=== PATIENT | male | born 2000 | race Caucasian/White ===

== ENCOUNTER 2022-09-08 21:09 | Emergency (ER) | payer SELFPAY ==
--- NOTE | 2022-09-08 21:49 | ED_ITS ---
HPI - Eye Problem General Stated complaint: R eye injury Time Seen by Provider: 09/08/22 21:28 [facility] Social History Social History Smoking status: Never smoker Discharge Plan Discharge Follow-up/Referrals: UNKNOWN,DOCTOR [Primary Care Provider] -
--- NOTE | 2022-09-08 21:49 | ED.EYEPROB ---
HPI - Eye Problem General Stated complaint: R eye injury Time Seen by Provider: 09/08/22 21:28 COUNTS INCLUDE 234 BEDS AT THE [facility] Social History Social History Smoking status: Never smoker Discharge Plan Discharge Follow-up/Referrals: UNKNOWN,DOCTOR [Primary Care Provider] -
== END 2022-09-08 21:30 | disposition left against medical advice (07) ==
LOC: CHSED 09-09 09:37
PROVIDERS: Emergency Provider Internal Medicine Critical Care Medicine
DX: Z53.21 Procedure and treatment not carried out due to patient leaving prior to being seen by health care provider (principal)
CPT/HCPCS: 99199

== ENCOUNTER 2023-03-06 12:12 | Emergency (ER) | payer BC, SELFPAY ==
[2023-03-06 12:12] VITALS: BP 143/85; PULSE 118; RESP 20; TEMP 36.3; O2SAT 100
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
[2023-03-06] MEDS: cefTRIAXone 1 GM VIAL 0.5 GM IM (13:46)
[2023-03-06] MEDS: LIDOCAINE HCL 1% LOCAL INJ 10 ML VIAL INFILTRATE (13:47)
[2023-03-06 14:00] VITALS: BP 124/70; PULSE 79; RESP 14; TEMP 36.8; O2SAT 100
[2023-03-06 14:04] LABS: HIV 1 P24 AG Negative (Negative); HIV 1/2 AB Negative (Negative)
--- NOTE | 2023-03-09 13:18 | PC.NURSE ---
FINAL C TRACHOMATIS RNA RESULTS: DETECTED FINAL N GONORRHOEAE RNA RESULTS: NO DETECTED. NO FURTHER TX NEEDED AT THIS TIME, ATTEMPTED TO CONTACT PT, UNABLE TO LEAVE MESSAGE.
[2023-03-09 14:50] LABS: RPR Screen Non-Reactive (Non-Reactive)
== END 2023-03-06 14:05 | disposition home or self-care (01) ==
PROVIDERS: Emergency Provider Emergency Medicine
DX: Z11.3 Encounter for screening for infections with a predominantly sexual mode of transmission (principal)
CPT/HCPCS: 36415; 86592; 87491; 87591; 87806; 96372; 99283; J0696

== ENCOUNTER 2024-01-19 20:11 | Emergency (ER) | payer BC, SELFPAY ==
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
[2024-01-19 20:15] VITALS: BP 131/95; PULSE 120; RESP 18; TEMP 36.4; O2SAT 100
[2024-01-19] MEDS: KETOROLAC (*BKC) 60 MG/2 ML VIAL IM (20:33)
--- NOTE | 2024-01-19 20:38 | PC.NURSE ---
DR KEATING AT PATIENT BEDSIDE PRESENTING RESULTS OF IMAGING TO PATIENT IN ADDITION TO PLAN OF CARE.
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
== END 2024-01-19 20:51 | disposition home or self-care (01) ==
PROVIDERS: Emergency Provider Emergency Medicine
DX: S40.022A Contusion of left upper arm, initial encounter (principal); W22.8XXA Striking against or struck by other objects, initial encounter
CPT/HCPCS: 73090; 96372; 99283; J1885

== ENCOUNTER 2024-05-04 14:54 | Emergency (ER) | payer BC, SELFPAY ==
[2024-05-04 14:55] VITALS: BP 138/80; PULSE 98; RESP 18; TEMP 36.5; O2SAT 100
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
--- NOTE | 2024-05-04 15:24 | PC.NURSE ---
UPON ERP ASSESSMENT, PT IS REQUESTING STD TESTING. DENIES ANY SX. PT IS REQUESTING HIV TESTING, STATES POSSIBLY EXPOSED TO THE CLAP .
--- NOTE | 2024-05-04 15:34 | PC.NURSE ---
URINE OBTAINED AND SENT TO LAB
[2024-05-04 16:07] LABS: HIV 1 P24 AG Negative (Negative); HIV 1/2 AB Negative (Negative)
[2024-05-04 16:25] VITALS: BP 136/70; PULSE 72; RESP 18; O2SAT 98
[2024-05-07 08:13] LABS: Chlamydia trachomatis NOT DETECTED (NOT DETECTE); Neisseria gonorrhoeae PCR NOT DETECTED (NOT DETECTE)
[2024-05-08 14:04] LABS: RPR Screen NON-REACTIVE (NON-REACTIVE)
== END 2024-05-04 16:25 | disposition home or self-care (01) ==
PROVIDERS: Emergency Provider Emergency Medicine
DX: J06.9 Acute upper respiratory infection, unspecified (principal); Z11.3 Encounter for screening for infections with a predominantly sexual mode of transmission
CPT/HCPCS: 36415; 86592; 87491; 87591; 87806; 99283

== ENCOUNTER 2024-05-27 01:15 | Emergency (ER) | payer BC, SELFPAY ==
[2024-05-27 01:15] VITALS: BP 138/83; PULSE 112; RESP 20; TEMP 36.2; O2SAT 94
--- NOTE | 2024-05-27 01:40 | PC.NURSE ---
dr rios at the bedside
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
[2024-05-27 09:17] LABS: HIV 1 P24 AG Negative (Negative); HIV 1/2 AB Negative (Negative)
[2024-05-30 07:23] LABS: Hepatitis B Surface Antigen NON-REACTIVE (NON-REACTIVE); Hepatitis C Virus Antibody NON-REACTIVE (NON-REACTIVE)
[2024-05-30 07:29] LABS: Hepatitis A Antibody IgM NON-REACTIVE (NON-REACTIVE); Hepatitis B Core Antibody NON-REACTIVE (NON-REACTIVE)
== END 2024-05-27 01:24 | disposition home or self-care (01) ==
LOC: CHSED 01:18
PROVIDERS: Emergency Provider Emergency Medicine
DX: S51.031A Puncture wound without foreign body of right elbow, initial encounter (principal); W46.1XXA Contact with contaminated hypodermic needle, initial encounter
CPT/HCPCS: 36415; 80074; 87806; 99283

== ENCOUNTER 2024-12-15 21:46 | Emergency (ER) | payer BC, SELFPAY ==
[2024-12-15 21:47] VITALS: BP 142/85; PULSE 95; RESP 18; TEMP 36.6; O2SAT 100
--- NOTE | 2024-12-15 22:31 | ED.EAR ---
HPI - Ear Problem General Chief complaint: Ear Stated complaint: pressure in head Time Seen by Provider: 12/15/24 21:48 Source: patient and family Mode of arrival: ambulatory Limitations: no limitations History of Present Illness HPI Narrative: this is a 24-year-old male who presents with some sinus pressure and bilateral ear pressure left greater than right with some nasal congestion with no cough does have a mild sore throat with no shortness of breath no nausea vomiting no fever chills. Complaint: ear pain Location: left ear Duration: constant Severity: moderate Relieving factors: nothing Exacerbating factors: nothing Related Data Home Medications ?Medication ?Instructions ?Recorded ?Confirmed ?Last Taken ?Type No Home Medications 01/19/24 12/15/24 Unknown History Allergies Allergy/AdvReac Type Severity Reaction Status Date / Time No Known Allergies Allergy Verified 12/15/24 22:00 Review of Systems Review of Systems: All systems reviewed & are unremarkable except as noted in HPI and below PMFSH Social History Social History Smoking status: Never smoker Exam Const: General: healthy appearing Nutritional Appearance: well nourished Orientation/consciousness: patient oriented x3 Limitations: no limitations HENMT: Other: frontal maxillary sinus tenderness with palpation with some bilateral nasal turbinates swollen red and erythematous with an erythematous throat. Eyes: Conjunctivae: conjunctivae normal Neck: Neck: normal visual inspection Chest: Chest palpation & inspection: normal inspection of the chest Resp: Effort & Inspection: normal respiratory effort Auscultation: clear to auscultation bilaterally Cardio: Rate: regular rate Rhythm: regular rhythm GI: GI Palp: Yes Soft to palpation Auscultation: normal bowel sounds Skin: General skin exam: normal color Rashes: no rashes Course Course Emergency Course: patient with some sinus pressure and left ear pain with pressure received 60mg IM Toradol COVID RSV influenza and rapid strep performed and reviewed with patient and family. Vital Signs Vital signs: Vital Signs Temperature 36.6 C 12/15/24 21:47 Pulse Rate 95 12/15/24 21:47 Respiratory Rate 18 12/15/24 21:47 Blood Pressure 142/85 H 12/15/24 21:47 Pulse Oximetry 100 12/15/24 21:47 Oxygen Delivery Room Air 12/15/24 21:47 Temperature 36.6 C 12/15/24 21:47 Pulse Rate 95 12/15/24 21:47 Respiratory Rate 18 12/15/24 21:47 Blood Pressure 142/85 H 12/15/24 21:47 Pulse Oximetry 100 12/15/24 21:47 Oxygen Delivery Room Air 12/15/24 21:47 Medical Decision Making Vital Signs Vital Signs: Vital Signs Temperature 36.6 C 12/15/24 21:47 Pulse Rate 95 12/15/24 21:47 Respiratory Rate 18 12/15/24 21:47 Blood Pressure 142/85 H 12/15/24 21:47 Pulse Oximetry 100 12/15/24 21:47 Oxygen Delivery Room Air 12/15/24 21:47 Temperature 36.6 C 12/15/24 21:47 Pulse Rate 95 12/15/24 21:47 Respiratory Rate 18 12/15/24 21:47 Blood Pressure 142/85 H 12/15/24 21:47 Pulse Oximetry 100 12/15/24 21:47 Oxygen Delivery Room Air 12/15/24 21:47 Critical Care Time Critical Care Time Critical Care Time: No Discharge Plan Discharge Clinical Impression: Sinusitis Qualifiers: Sinusitis location: frontal Chronicity: acute Recurrence: recurrent Qualified Code(s): J01.11 - Acute recurrent frontal sinusitis Patient Disposition: Home Condition: Stable Instructions: Antibiotic Form, Sinusitis (ED) Additional Instructions: advised patient to take medication as prescribed and to follow with primary care physician within the next week if symptoms persist or worsen. Patient Language: Slovak Prescriptions: No Action No Home Medications Follow-up/Referrals: Chely,Arina Senior APRN [Primary Care Provider] -
[2024-12-15] MEDS: KETOROLAC (*BKC) 60 MG/2 ML VIAL IM (22:54)
[2024-12-15 23:35] LABS: Strep Group A RT-PCR NOT DETECTED (Negative)
[2024-12-15 23:44] LABS: Influenza A QL RT-PCR Negative (Negative); Influenza B QL RT-PCR Negative (Negative); RSV RNA, RT-PCR Negative (Negative); SARS-CoV-2 RNA PCR Negative (Negative)
[2024-12-16] MEDS: AMOXICILLIN/CLAVULANATE K 875-125 MG TAB 1 TABLET PO (00:25)
[2024-12-16 01:15] VITALS: BP 139/82; PULSE 90; RESP 16; TEMP 36.8; O2SAT 100
== END 2024-12-16 00:55 | disposition home or self-care (01) ==
PROVIDERS: Emergency Provider Emergency Medicine; PCP Nurse Practitioner Family
DX: J01.11 Acute recurrent frontal sinusitis (principal); Z20.822 Contact with and (suspected) exposure to COVID-19
CPT/HCPCS: 87637; 87651; 96372; 99283; A9270; J1885

== ENCOUNTER 2025-05-23 11:31 | Emergency (ER) | payer BC, SELFPAY ==
--- NOTE | ~2025-05-23 | XR_ITS ---
EXAMINATION: XR chest 2V, 05/23/2025 12:00 CDT HISTORY: Chest congestion COMPARISON: No comparisons available. Technique: 2 views obtained. Findings: The lungs are clear, no effusion. No pneumothorax. Heart is normal size. Mediastinal and hilar contours are within normal limits. Bony thorax no acute abnormality. There is metallic radiopaque foreign body overlying the left upper hemithorax. Impression: No acute cardiopulmonary abnormality. Reviewed, dictated and finalized at location P. Impression: No acute cardiopulmonary abnormality.
--- NOTE | ~2025-05-23 | CT_ITS ---
CT ABDOMEN AND PELVIS WITHOUT CONTRAST Clinical History: Flank pain Comparison: None Technique: Unenhanced axial images lung bases to symphysis pubis Coronal, sagittal reformats CT images acquired with automatic exposure control for dose reduction DLP: 255 mGy-cm Findings: Without intravenous contrast, sensitivity for detecting visceral parenchymal abnormalities decreased. Evaluation further degraded by motion and streak artifact. Lung bases: Clear. Visualized heart and pericardium: Unremarkable. Liver: Unremarkable. Gallbladder: Unremarkable. Spleen: Unremarkable. Pancreas: Unremarkable. Adrenal glands: Unremarkable. Kidneys: Right kidney- No hydronephrosis. No renal stones. Left kidney- No hydronephrosis. No renal stones. Distal esophagus/stomach: Unremarkable. Small bowel loops: Normal caliber and wall thickness. Colon: Normal caliber and wall thickness. Appendix not identified. Nodes: No enlarged nodes. Peritoneum: No ascites. No free intraperitoneal air. Urinary bladder: Unremarkable. Prostate: Unremarkable. Bones: No acute bony abnormality. Soft tissues: Unremarkable. Unopacified abdominal aorta: No aneurysmal dilatation. IMPRESSION: 1. No acute abnormality. Reviewed, dictated and finalized at location R. IMPRESSION: 1. No acute abnormality.
--- NOTE | 2025-05-23 11:32 | ECG_ITS ---
Test Date: 2025-05-23 11:41:12 Measurements Intervals [place] Rate: 93 P: 81 MI: 179 QRS: 68 QRSD: 110 T: 55 QT: 353 QTc: 440 Interpretive Statements SINUS RHYTHM INCOMPLETE RIGHT BUNDLE BRANCH BLOCK MINIMAL Q WAVES- DIFFUSE LEADS BORDERLINE ECG No previous ECG available for comparison Electronically Signed On 05-23-2025 11:48:08 CDT by Jorge Mar D.O.
[2025-05-23] MEDS: KETOROLAC 30 MG/ML VIAL (*BKC) IV PUSH (11:41)
[2025-05-23] MEDS: ONDANSETRON INJ 4 MG/2 ML VIAL IV PUSH (11:41)
[2025-05-23] MEDS: SODIUM CHLORIDE 0.9% IV 1,000 ML 999 ML IV CONT (11:42)
[2025-05-23 11:53] VITALS: BP 154/72; PULSE 90; RESP 12; TEMP 37.1; O2SAT 99
[2025-05-23 12:00] LABS: Hematocrit 40.4 % (40.0-54.0); Hemoglobin 13.0 g/dL (14.0-18.0); Immature Granulocyte Percent A 0.1 % (0.0-0.0); Lymphocytes Absolute Auto 2.68 K/mm3 (1.10-4.50); Mean Corpuscular HGB Conc 32.2 g/dL (32-36); Mean Corpuscular Hemoglobin 27.5 pg (27.0-31.0); Mean Corpuscular Volume 85.4 fL (78.0-102.0); Nucleated Red Blood Cells Absolute Auto 0.00 K/mm3 (0.00-0.00); Nucleated Red Blood Cells Perc 0.0 % (0-0.0); Platelet Count Result 389 K/mm3 (150-420); Red Blood Count 4.73 M/mm3 (4.70-6.10); White Blood Count 7.5 K/mm3 (4.8-10.8)
[2025-05-23 12:12] LABS: Alanine Aminotransferase 15 U/L (6-50); Albumin Level 4.2 g/dL (3.5-5.1); Alkaline Phosphatase 79 U/L (38-126); Anion Gap 7 mmol/L (4-12); Aspartate Amino Transferase 21 U/L (17-59); Bilirubin,Total 0.8 mg/dL (0.2-1.3); Blood Urea Nitrogen 12 mg/dL (9-20); Calcium 9.0 mg/dL (8.4-10.2); Carbon Dioxide 27 mmol/L (22-30); Chloride 105 mmol/L (98-107); Estimated CRCL calculation 125 ml/min; Estimated Glomerular Filt Rate > 60; Glucose 110 mg/dL (65-110); Lipase 46 U/L (23-300); Osmolality Calculated 288 mOsm/kg (285-295); Potassium 3.9 mmol/L (3.4-5.0); Sodium 139 mmol/L (137-145); Total Protein 6.9 g/dL (6.3-8.2)
[2025-05-23 12:15] LABS: INR 1.0; Partial Thromboplastin Time 30.9 Sec (23.9-30.70); Prothrombin Time 10.9 Seconds (9.50-12.1)
[2025-05-23 12:23] LABS: Troponin I < 0.012 ng/mL (0.000-0.034)
[2025-05-23 12:36] LABS: Influenza A QL RT-PCR Negative (Negative); Influenza B QL RT-PCR Negative (Negative); RSV RNA, RT-PCR Negative (Negative); SARS-CoV-2 RNA PCR Negative (Negative)
--- NOTE | 2025-05-23 12:46 | ED.ABDPAIN ---
HPI - Abdominal Pain General Chief Complaint: Abdominal Pain Stated Complaint: abd pain Time Seen by Provider: 05/23/25 11:32 Source: patient and police Mode of arrival: ambulatory Limitations: no limitations History of Present Illness HPI narrative: This is a 20-year-old male with no significant past medical history presents with left flank pain radiating to his left groin area with some cough and congestion with some nausea no vomiting no fever chills no chest pain or shortness of breath no audible wheezing. Patient was escorted to the ED police. MD elicited complaint: abdominal pain and flank pain Onset (ago): day(s) Pain Consistency: constant Location: L flank Severity: moderate Pain scale (0-10): 8 Quality: aching Related Data Allergies Allergy/AdvReac Type Severity Reaction Status Date / Time No Known Allergies Allergy Verified 12/15/24 22:00 Review of Systems Review of Systems: All systems reviewed & are unremarkable except as noted in HPI and below PMFSH Social History Social History Smoking status: Never smoker Exam Const: General: healthy appearing and no acute distress Nutritional Appearance: well nourished Orientation/consciousness: patient oriented x3 Limitations: no limitations Chest: Chest palpation & inspection: normal inspection of the chest Resp: Effort & Inspection: normal respiratory effort Auscultation: clear to auscultation bilaterally Cardio: Rate: regular rate Rhythm: regular rhythm GI: GI Palp: Yes Soft to palpation Auscultation: normal bowel sounds : General: Yes bladder normal to palpation and Yes CVA tenderness Skin: General skin exam: normal color Rashes: no rashes Extrem: General: normal to inspection and no clubbing, cyanosis or edema Course Course Emergency Course: Medical decision making narrative: The patient was evaluated by myself in the emergency department. History obtained from the patient who is an independent historian physical exam performed and witnessed by nurse. X-ray of the chest performed reviewed with no acute cardiopulmonary abnormality, blood work obtained which shows no acute abnormalities. The patient received 30mg IV Toradol and Zofran. CT scan of the abdomen pelvis without contrast performed and reviewed with patient. Repeat assessment: Patient doing well on repeat exam with no acute distress. Symptoms improved since arrival to the emergency department. Repeat vitals are stable. Patient agrees with discussion after shared medical decision-making and agrees with discharge. All questions answered to patient's satisfaction. Vital Signs Vital signs: Vital Signs Temperature 37.1 C 05/23/25 11:53 Pulse Rate 90 05/23/25 11:53 Respiratory Rate 12 05/23/25 11:53 Blood Pressure 154/72 H 05/23/25 11:53 Pulse Oximetry 99 05/23/25 11:53 Oxygen Delivery Room Air 05/23/25 11:53 Temperature 36.4 C 05/23/25 13:38 Pulse Rate 102 H 05/23/25 13:38 Respiratory Rate 18 05/23/25 13:38 Blood Pressure 121/69 05/23/25 13:38 Pulse Oximetry 100 05/23/25 13:38 Oxygen Delivery Room Air 05/23/25 13:38 MDM - Abdominal Pain Lab Data 05/23/25 11:51 05/23/25 11:50 Labs: Lab Results 05/23/25 05/23/25 05/23/25 Range/Units 11:50 11:51 11:55 WBC 7.5 (4.8-10.8) K/mm3 RBC 4.73 (4.70-6.10) M/mm3 Hgb 13.0 L (14.0-18.0) g/dL Hct 40.4 (40.0-54.0) % MCV 85.4 (78.0-102.0) fL MCH 27.5 (27.0-31.0) pg MCHC 32.2 (32-36) g/dL RDW 13.6 (11.6-14.4) % Plt Count 389 (150-420) K/mm3 MPV 8.4 L (8.7-11.0) fl Immature Gran % (Auto) 0.1 H (0.0-0.0) % Neut % (Auto) 53.4 (50.0-70.0) % Lymph % (Auto) 35.6 (18.0-42.0) % [place] % (Auto) 7.8 (2.0-11.0) % Eos % (Auto) 2.0 (1.0-6.0) % Baso % (Auto) 1.1 H (0.0-1.0) % Lymph # (Auto) 2.68 (1.10-4.50) K/mm3 [place] # (Auto) 0.59 (0.10-0.90) K/mm3 Eos # (Auto) 0.15 (0.02-0.50) K/mm3 Baso # (Auto) 0.08 (0.00-0.10) K/mm3 Abs Immat Gran (auto) 0.01 H (0.00-0.00) K/mm3 Absolute Neuts (auto) 4.02 (1.70-7.20) K/mm3 Absolute Nucleated RBC 0.00 (0.00-0.00) K/mm3 Nucleated RBC % 0.0 (0-0.0) % PT 10.9 (9.50-12.1) Seconds INR 1.0 APTT 30.9 H (23.9-30.70) Sec Sodium 139 (137-145) mmol/L Potassium 3.9 (3.4-5.0) mmol/L Chloride 105 (98-107) mmol/L Carbon Dioxide 27 (22-30) mmol/L Anion Gap 7 (4-12) mmol/L BUN 12 (9-20) mg/dL Creatinine 0.87 (0.7-1.3) mg/dL Estim Creat Clear Calc 125 ml/min Estimated GFR > 60 (59 - ) Glucose 110 (65-110) mg/dL Calculated Osmolality 288 (285-295) mOsm/kg Lactic Acid 0.6 (0.4-2.0) mmol/L Calcium 9.0 (8.4-10.2) mg/dL Total Bilirubin 0.8 (0.2-1.3) mg/dL AST 21 (17-59) U/L ALT 15 (6-50) U/L Alkaline Phosphatase 79 (38-126) U/L Troponin I < 0.012 (0.000-0.034) ng/mL Total Protein 6.9 (6.3-8.2) g/dL Albumin 4.2 (3.5-5.1) g/dL Lipase 46 (23-300) U/L Urine Color (Yellow) Urine Appearance (Clear) Urine pH (5.0-8.0) Ur Specific [place] (1.010-1.020) Urine Protein (Negative) Urine Glucose (UA) (Negative) Urine Ketones (Negative) Ur Blood (Man) (Negative) Urine Nitrate (Negative) Urine Bilirubin (Negative) Urine Urobilinogen (0.2-1.0) mg/dL Leukocyte Esterase Rfl (Negative) CARMEL/UL Influenza A (RT-PCR) Negative (Negative) Influenza B (RT-PCR) Negative (Negative) RSV (RT-PCR) Negative (Negative) SARS-CoV-2 RNA (RT-PCR) Negative (Negative) 05/23/25 Range/Units 13:46 WBC (4.8-10.8) K/mm3 RBC (4.70-6.10) M/mm3 Hgb (14.0-18.0) g/dL Hct (40.0-54.0) % MCV (78.0-102.0) fL MCH (27.0-31.0) pg MCHC (32-36) g/dL RDW (11.6-14.4) % Plt Count (150-420) K/mm3 MPV (8.7-11.0) fl Immature Gran % (Auto) (0.0-0.0) % Neut % (Auto) (50.0-70.0) % Lymph % (Auto) (18.0-42.0) % [place] % (Auto) (2.0-11.0) % Eos % (Auto) (1.0-6.0) % Baso % (Auto) (0.0-1.0) % Lymph # (Auto) (1.10-4.50) K/mm3 [place] # (Auto) (0.10-0.90) K/mm3 Eos # (Auto) (0.02-0.50) K/mm3 Baso # (Auto) (0.00-0.10) K/mm3 Abs Immat Gran (auto) (0.00-0.00) K/mm3 Absolute Neuts (auto) (1.70-7.20) K/mm3 Absolute Nucleated RBC (0.00-0.00) K/mm3 Nucleated RBC % (0-0.0) % PT (9.50-12.1) Seconds INR APTT (23.9-30.70) Sec Sodium (137-145) mmol/L Potassium (3.4-5.0) mmol/L Chloride (98-107) mmol/L Carbon Dioxide (22-30) mmol/L Anion Gap (4-12) mmol/L BUN (9-20) mg/dL Creatinine (0.7-1.3) mg/dL Estim Creat Clear Calc ml/min Estimated GFR (59 - ) Glucose (65-110) mg/dL Calculated Osmolality (285-295) mOsm/kg Lactic Acid (0.4-2.0) mmol/L Calcium (8.4-10.2) mg/dL Total Bilirubin (0.2-1.3) mg/dL AST (17-59) U/L ALT (6-50) U/L Alkaline Phosphatase (38-126) U/L Troponin I (0.000-0.034) ng/mL Total Protein (6.3-8.2) g/dL Albumin (3.5-5.1) g/dL Lipase (23-300) U/L Urine Color Light yellow (Yellow) Urine Appearance Clear (Clear) Urine pH 6.5 (5.0-8.0) Ur Specific [place] 1.015 (1.010-1.020) Urine Protein Negative (Negative) Urine Glucose (UA) Negative (Negative) Urine Ketones Negative (Negative) Ur Blood (Man) Negative (Negative) Urine Nitrate Negative (Negative) Urine Bilirubin Negative (Negative) Urine Urobilinogen 0.2 (0.2-1.0) mg/dL Leukocyte Esterase Rfl Negative (Negative) CARMEL/UL Influenza A (RT-PCR) (Negative) Influenza B (RT-PCR) (Negative) RSV (RT-PCR) (Negative) SARS-CoV-2 RNA (RT-PCR) (Negative) Imaging Data Radiologist's impression: ITS Impressions Chest X-Ray 05/23/25 12:15 Impression: No acute cardiopulmonary abnormality. Abdomen/Pelvis CT 05/23/25 13:14 IMPRESSION: 1. No acute abnormality. Discharge Plan Discharge Clinical Impression: Epididymitis, Gastroenteritis Patient Disposition: Home Condition: Stable Instructions: Antibiotic Form, Epididymitis (ED), Gastroenteritis (ED) Additional Instructions: Take medication as prescribed and follow up with primary if symptoms persist or worsen. Patient Language: Slovenian Prescriptions: New sulfamethoxazole-trimethoprim [Bactrim DS] 800-160 mg tablet 1 tablet PO Q12H Qty: 14 0RF naproxen 500 mg tablet 500 mg PO BID PRN (Reason: pain) Qty: 14 0RF No Action azithromycin [Zithromax Z-Samir] 250 mg tablet See Rx Instructions .ROUTE .COMPLEX Qty: 6 0RF Rx Instructions: For 250 mg dose pack: take 500 mg today (day 1), then 250 mg for 4 days (days 2-5) naproxen 500 mg tablet 500 mg PO BID PRN (Reason: pain) Qty: 20 0RF Follow-up/Referrals: PHYSICIAN,DISTRIBUTION ACCOUNTING CLERK [Primary Care Provider, Internal Medicine] Time of Disposition: 13:29
[2025-05-23] MEDS: SULFAMETHOXAZOLE/TRIMETHOPRIM 800/160 MG DS TABLET 1 TAB PO (13:31)
[2025-05-23 13:38] VITALS: BP 121/69; PULSE 102; RESP 18; TEMP 36.4; O2SAT 100
[2025-05-23 13:52] LABS: Add Urine Microscopic? NO; Appearance Urine Clear (Clear); Glucose Urine UA Negative (Negative); Leukocyte Esterase Ur Negative LEU/UL (Negative); Nitrate Urine Negative (Negative); Specific Grav Ur 1.015 (1.010-1.020)
--- NOTE | 2025-05-23 14:20 | PC.NURSE ---
On 05/23/25, the student, [GARTH JAIMES ], provided care and completed [facility] documentation on this patient. I have reviewed the student's documentation and agree with the findings.
--- NOTE | 2025-05-26 20:36 | PC.NURSE ---
Prelim blood cx report, Rt AC: No growth in 24 hrs.
--- NOTE | 2025-05-27 14:45 | PC.NURSE ---
PRELIMINARY BLOOD CULTURE REPORT; NO GROWTH IN 48 HOURS.
--- NOTE | 2025-05-30 13:41 | PC.NURSE ---
blood culture, no growth, final
== END 2025-05-23 14:21 | disposition home or self-care (01) ==
PROVIDERS: Emergency Provider Emergency Medicine; Referring Provider Family Medicine
DX: N45.1 Epididymitis (principal); K52.9 Noninfective gastroenteritis and colitis, unspecified; Z20.822 Contact with and (suspected) exposure to COVID-19
CPT/HCPCS: 36415; 71046; 74176; 80053; 81003; 83605; 83690; 84484; 85025; 85610; 85730; 87040; 87637; 93005; 96361; 96374; 96375; 99284; A9270; J1885; J2405; J7030

== ENCOUNTER 2025-06-13 16:26 | Emergency (ER) | payer BC, SELFPAY ==
[2025-06-13 16:26] VITALS: BP 135/78; PULSE 107; RESP 16; TEMP 36.7; O2SAT 100
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
--- NOTE | 2025-06-13 16:44 | PC.NURSE ---
9509 officer Sindy from [facility] department at [facility], states pt is stating he is feeling better and doesnt want any further treatment at this time. dr rios in room.
--- OUTSIDE RECORDS SUMMARY | 2025-06-13 18:16 | XMS_ITS | Clinical Summary ---
Author Organization [facility] Address [facility] [place] [address] Care Team Providers Care Child Study Team Director Name Role Phone None, Provider MD Primary Care Provider Unavaila ble Allergies No known active allergies Medications No known medications Active Problems No known active problems Immunizations Immunization Administration Dates Next Due Tdap (Boostrix) 06/26/2023 Social History Tobacco Use Types Packs/Day Years Used Date Smoking Tobacco: Every Day Cigarettes Tobacco Cessation:Ready to Q uit: Not Asked; Counseling Given: Not Answered Sex and Gender Information Value Date Recorded Sex Assigned at Not on file Legal Sex Male 5:52 PM HOMEOPATHIC DOCTOR Gender Identity Not on file Sexual Orientation Not on file Last Filed Vital Signs Vital Sign Reading Time Taken Comments Blood Pressure 158/91 06/26/2023 3:04 PM HOMEOPATHIC DOCTOR Pulse 105 06/26/2023 3:49 PM HOMEOPATHIC DOCTOR Temperature 37.1 C (98.7 F) 06/26/2023 3:04 PM HOMEOPATHIC DOCTOR Respiratory Rate 18 06/26/2023 3:04 PM HOMEOPATHIC DOCTOR Oxygen Saturation 100% 06/26/2023 3:04 PM HOMEOPATHIC DOCTOR Inhaled Oxygen Concentration - - Weight 108.9 kg (240 lb) 06/26/2023 3:04 PM HOMEOPATHIC DOCTOR Height 182.9 cm (6') 06/26/2023 3:04 PM HOMEOPATHIC DOCTOR Body Mass Index 32.55 06/26/2023 3:04 PM HOMEOPATHIC DOCTOR Plan of Treatment Health Maintenance Due Date Last Done Comments Annual Physical 01/06/2003 Hepatitis C 01/06/2018 Pneumococcal Vaccine: Pediatrics (0 to 5 Years) and At-Risk Patients (6 to 49 Years) (1 of 2 - PCV) 01/06/2019 COVID-19 Vaccine ( - season) 2025 Influenza Adult (#1) 2025 05/31/2013 DTaP, Tdap and Td Vaccines (8 - Td or Tdap) 06/26/2033 06/26/2023, 05/31/2013, 09/15/2004, Additional history exists Hepatitis B Vaccines Completed 01/26/2002, 2000, 2000 HPV Vaccines Completed 02/28/2014, 05/31/2013 Meningococcal Vaccine Completed 05/04/2017, 013 Hepatitis A Vaccines Aged Out No long er eligible based on patient's age to complete this topic Meningococcal B Vaccine Aged Out No l onger eligible based on patient's age to complete this topic RSV Immunizations Under 20 Months Aged Out No longer eligible based on patient's age to complete this topic Insurance [facility] MEDICAID C/O PROVIDER SERVICES [place] [id number] Care Teams Child Study Team Director Relationship Specialty Start Date End Date None, Provider, PCP - General UNKNOWN PHYSICIAN SPECIALTY 09/05/22
== END 2025-06-13 16:45 ==
LOC: CHSED 16:40
PROVIDERS: Emergency Provider Emergency Medicine
DX: R11.2 Nausea with vomiting, unspecified (principal)
CPT/HCPCS: 82948; 99282